=== PATIENT | female | born 1945 | race Caucasian/White ===

== ENCOUNTER 2016-10-28 19:13 | Emergency (ER) | payer OTHER ==
[~2016-10-28] VITALS: Ht 165.1 cm; Wt 109.1 kg
[~2016-10-28 19:13] MED LIST: ALPR1TAB7 PO; ATOR10TA84 PO; CALC-51 PO; CALC25 PO; CARV3 PO; DIPH25 PO; FURO20 PO; INSLAN SQ; INSNOV SQ; LEVO50TA4 PO; LORA-703 PO; MECL-111 PO; OMEP20 PO; SERT100T12 PO; VITAD1000 PO; ZOLP10 PO
[2016-10-28 19:41] LABS: GLUCOSE,POINT OF CARE 161 MG/DL (70-110)
[2016-10-28 21:16] VITALS: BP 119/73
== END 2016-10-28 22:04 | disposition home or self-care (01) ==
LOC: EMS 19:15
DX: S61.210A Laceration without foreign body of right index finger without damage to nail, initial encounter (principal); S90.01XA Contusion of right ankle, initial encounter; E11.29 Type 2 diabetes mellitus with other diabetic kidney complication; N28.9 Disorder of kidney and ureter, unspecified; I10 Essential (primary) hypertension; Z79.4 Long term (current) use of insulin; Z88.0 Allergy status to penicillin; Z88.8 Allergy status to other drugs, medicaments and biological substances; W45.8XXA Other foreign body or object entering through skin, initial encounter; Y93.89 Activity, other specified; Y92.89 Other specified places as the place of occurrence of the external cause; Y99.8 Other external cause status
CPT/HCPCS: 12001; 82962; 99284

== ENCOUNTER 2016-12-02 13:29 | Inpatient (IN) | payer OTHER ==
[~2016-12-02] VITALS: Ht 162.6 cm; Wt 100.6 kg
[~2016-12-02 13:29] MED LIST changes: -DIPH25 PO; -LORA-703 PO; -MECL-111 PO; -OMEP20 PO; -ZOLP10 PO
[2016-12-02 14:12] LABS: GLUCOSE,POINT OF CARE 159 MG/DL (70-110)
[2016-12-02] MEDS ORDERED: ASPIRIN 81 MG CHEWABLE TABLET PO ONE (14:45)
[2016-12-02 15:03] LABS: BASOPHILS # (AUTO) 0.02 K/uL (0.00-0.20); BASOPHILS % (AUTO) 0.2 % (0.0-2.0); EOSINOPHILS # (AUTO) 0.17 K/uL (0.00-0.70); HEMATOCRIT 36.8 % (36-46); HEMOGLOBIN 12.1 g/dL (12.0-16.0); LYMPHOCYTES # (AUTO) 0.9 K/uL (1.0-4.8); LYMPHOCYTES % (AUTO) 11.2 % (22.0-44.0); MEAN CORPUSCULAR HEMOGLOBIN 37.9 pg (26.0-34.0); MEAN CORPUSCULAR VOLUME 115 fL (80-100); MONOCYTES # (AUTO) 0.3 K/uL (0.1-1.0); MONOCYTES % (AUTO) 3.7 % (2.0-9.0); NEUTROPHILS # (AUTO) 6.9 K/uL (1.8-7.7); NEUTROPHILS % (AUTO) 82.9 % (40.0-70.0); PLATELET COUNT (AUTO) 208 K/uL (150-450); WHITE BLOOD COUNT (AUTO) 8.3 K/uL (4.5-11.0)
[2016-12-02 15:16] LABS: ANION GAP 6 mmol/L (8-16); CALCIUM, TOTAL 9.6 mg/dL (8.8-10.5); CARBON DIOXIDE 34 mmol/L (22-29); CHLORIDE 103 mmol/L (98-107); CREATININE 1.83 mg/dL (0.60-1.30); GLOMERULAR FILTR. RATE CALC 27 mL/min (>60); INR 1.1 (0.9-1.1); POTASSIUM 4.1 mmol/L (3.5-5.1); PROTHROMBIN TIME 11.2 SEC (9.4-11.6); SODIUM SERUM 143 mmol/L (136-145); UREA NITROGEN, BLOOD 43 mg/dL (7-18)
[2016-12-02 15:22] LABS: ALANINE AMINOTRANSFERASE 51 U/L (12-78); ALBUMIN 3.1 g/dL (3.4-5.0); ASPARTATE AMINOTRANSFERASE 47 U/L (15-37); BILIRUBIN,TOTAL 0.4 mg/dL (0.1-1.0); CREATINE KINASE, TOTAL 60 U/L (26-192); TOTAL PROTEIN, SERUM 6.9 g/dL (6.4-8.2)
[2016-12-02 15:31] LABS: B-TYPE NATRIURETIC PEPTIDE 255 pg/mL (0-100)
[2016-12-02 15:38] LABS: RBC MORPHOLOGY COMMENT ABNORMAL RBC MORPH
[2016-12-02] MEDS ORDERED: SODIUM CHLORIDE 0.9% 1,000 ML IV ONE (16:00)
[2016-12-02] MEDS ORDERED: DIGOXIN 250 MCG/ML 2 ML AMP IVP ONE ×2 (16:15→17:00)
[2016-12-02 16:18] LABS: APPEARANCE,URINE CLEAR (CLEAR); GLUCOSE, URINE (UA) NEGATIVE (NEGATIVE); KETONES,URINE NEGATIVE (NEGATIVE); LEUKOCYTE ESTERASE ,URINE NEGATIVE (NEGATIVE); OCCULT BLOOD,URINE NEGATIVE (NEGATIVE); PH,URINE 5.5 (5.0-8.0); PROTEIN,URINE NEGATIVE (NEGATIVE)
[2016-12-02 16:19] LABS: ADD UA MICROSCOPIC NO
[2016-12-02] MEDS ORDERED: HEPARIN SODIUM 25000 UNITS/D5W 250 ML IV PRN (16:32)
[2016-12-02] MEDS ORDERED: HEPARIN SODIUM,PORCINE 5,000 UNITS/ML VIAL IVP ONE ×2 (16:45)
[2016-12-02] MEDS ORDERED: AMIODARONE HCL 360 MG in DEXTROSE 5%-WATER 242.8 ML IV ONE (16:45)
[2016-12-02] MEDS ORDERED: 0.9% SODIUM CHLORIDE 10 ML SYRINGE IVP PRN (16:45)
[2016-12-02] MEDS ORDERED: ONDANSETRON HCL 4 MG/2 ML VIAL IVP PRN (16:45)
[2016-12-02] MEDS ORDERED: HEPARIN SODIUM,PORCINE 5,000 UNITS/ML VIAL IVP PRN ×2 (16:45)
[2016-12-02] MEDS ORDERED: AMIODARONE HCL 150 MG in DEXTROSE 5%-WATER 97 ML IV ONE (16:45)
[2016-12-02] MEDS ORDERED: ACETAMINOPHEN 325 MG TABLET PO PRN (18:15)
[2016-12-02] MEDS ORDERED: DEXTROSE 50%-WATER 25 GM/50 ML SYRINGE IVP PRN (18:15)
[2016-12-02] MEDS ORDERED: ZOLPIDEM TARTRATE 5 MG TABLET PO PRN (18:15)
[2016-12-02 19:53] VITALS: BP 120/65
[2016-12-02] MEDS: FUROSEMIDE 20 MG TABLET PO SCH (20:48)
[2016-12-02] MEDS: CARVEDILOL 3.125 MG TABLET PO SCH (20:48)
[2016-12-02] MEDS: OxyCODONE HCL/ACETAMINOPHEN 5-325 MG TABLET PO PRN (20:48)
[2016-12-02] MEDS: SERTRALINE HCL 100 MG TABLET PO SCH (20:48)
[2016-12-02] MEDS ORDERED: AMIODARONE HCL 540 MG in DEXTROSE 5%-WATER 239.2 ML IV ONE (22:45)
[2016-12-02] MEDS: INSULIN ASPART 100 UNITS/ML SQ PRN (23:19)
[2016-12-03] VITALS (7 sets, daily range): BP systolic 102–131; BP diastolic 47–69
[2016-12-03] MEDS: HEPARIN SODIUM,PORCINE 5,000 UNITS/ML VIAL SQ SCH ×2 (01:08→08:54)
[2016-12-03] MEDS: LEVOTHYROXINE SODIUM 50 MCG TABLET PO SCH (06:18)
[2016-12-03 08:06] LABS: BASOPHILS % (AUTO) 0.5 % (0.0-2.0); EOSINOPHILS % (AUTO) 4.2 % (1.0-6.0); HEMATOCRIT 33.2 % (36-46); HEMOGLOBIN 10.5 g/dL (12.0-16.0); LYMPHOCYTES # (AUTO) 1.9 K/uL (1.0-4.8); LYMPHOCYTES % (AUTO) 29.8 % (22.0-44.0); MEAN CORPUSCULAR HEMOGLOBIN 36.6 pg (26.0-34.0); MEAN CORPUSCULAR HGB CONC 31.5 G/dL (31.0-37.0); MEAN CORPUSCULAR VOLUME 116 fL (80-100); MONOCYTES # (AUTO) 0.3 K/uL (0.1-1.0); MONOCYTES % (AUTO) 4.4 % (2.0-9.0); NEUTROPHILS # (AUTO) 3.9 K/uL (1.8-7.7); NEUTROPHILS % (AUTO) 61.1 % (40.0-70.0); PLATELET COUNT (AUTO) 190 K/uL (150-450); RED BLOOD CELL COUNT(AUTO) 2.86 MIL/uL (4.00-5.20); RED CELL DISTRIBUTION WIDTH 15.2 % (11.5-14.5); WHITE BLOOD COUNT (AUTO) 6.3 K/uL (4.5-11.0)
[2016-12-03] MEDS: ATORVASTATIN CALCIUM 10 MG TABLET PO SCH (08:54)
[2016-12-03] MEDS: PANTOPRAZOLE SODIUM 40 MG DR TABLET PO SCH (08:55)
[2016-12-03] MEDS: CHOLECALCIFEROL (VIT D3) 1,000 UNITS TABLET PO SCH (08:55)
[2016-12-03] MEDS: CARVEDILOL 3.125 MG TABLET PO SCH ×2 (08:55→21:49)
[2016-12-03] MEDS: CALCITRIOL 0.25 MCG CAPSULE PO SCH (08:55)
[2016-12-03] MEDS: FUROSEMIDE 20 MG TABLET PO SCH ×2 (08:57→21:49)
[2016-12-03] MEDS: APIXABAN 5 MG TABLET PO SCH ×2 (17:04→21:49)
[2016-12-03] MEDS: AMIODARONE HCL 750 MG in DEXTROSE 5%-WATER 485 ML IV SCH (17:05)
[2016-12-03] MEDS: INSULIN ASPART 100 UNITS/ML SQ PRN ×2 (18:21→21:48)
[2016-12-03] MEDS: SERTRALINE HCL 100 MG TABLET PO SCH (21:48)
[2016-12-03] MEDS: OxyCODONE HCL/ACETAMINOPHEN 5-325 MG TABLET PO PRN (22:36)
[2016-12-04 04:23] VITALS: BP 125/70
[2016-12-04] MEDS: OxyCODONE HCL/ACETAMINOPHEN 5-325 MG TABLET PO PRN ×2 (05:28→21:49)
[2016-12-04] MEDS: LEVOTHYROXINE SODIUM 50 MCG TABLET PO SCH (06:29)
[2016-12-04] MEDS: INSULIN ASPART 100 UNITS/ML SQ PRN ×4 (06:36→21:43)
[2016-12-04 07:28] VITALS: BP 100/46
[2016-12-04 07:33] LABS: GLUCOSE COMMENT 1 Received Meds; GLUCOSE,POINT OF CARE 221 MG/DL (70-110)
[2016-12-04] MEDS: PANTOPRAZOLE SODIUM 40 MG DR TABLET PO SCH (09:11)
[2016-12-04] MEDS: ATORVASTATIN CALCIUM 10 MG TABLET PO SCH (09:11)
[2016-12-04] MEDS: APIXABAN 5 MG TABLET PO SCH ×2 (09:11→21:42)
[2016-12-04] MEDS: FUROSEMIDE 20 MG TABLET PO SCH ×2 (09:11→21:42)
[2016-12-04] MEDS: CHOLECALCIFEROL (VIT D3) 1,000 UNITS TABLET PO SCH (09:11)
[2016-12-04] MEDS: CARVEDILOL 3.125 MG TABLET PO SCH ×2 (09:12→21:43)
[2016-12-04] MEDS: CALCITRIOL 0.25 MCG CAPSULE PO SCH (09:22)
[2016-12-04 11:06] VITALS: BP 125/71
[2016-12-04 15:10] LABS: CALCIUM, TOTAL 9.5 mg/dL (8.8-10.5); CREATININE 1.84 mg/dL (0.60-1.30); POTASSIUM 4.5 mmol/L (3.5-5.1)
[2016-12-04 15:18] LABS: ALBUMIN 2.8 g/dL (3.4-5.0); BILIRUBIN,TOTAL 0.3 mg/dL (0.1-1.0); TOTAL PROTEIN, SERUM 6.5 g/dL (6.4-8.2)
[2016-12-04 15:53] VITALS: BP 108/61
[2016-12-04] MEDS: AMIODARONE HCL 750 MG in DEXTROSE 5%-WATER 485 ML IV SCH (17:31)
[2016-12-04 19:44] VITALS: BP 125/74
[2016-12-04] MEDS: SERTRALINE HCL 100 MG TABLET PO SCH (21:43)
[2016-12-05 00:05] VITALS: BP 116/67
[2016-12-05 04:32] VITALS: BP 111/80
[2016-12-05] MEDS: OxyCODONE HCL/ACETAMINOPHEN 5-325 MG TABLET PO PRN ×2 (05:23→20:58)
[2016-12-05] MEDS: LEVOTHYROXINE SODIUM 50 MCG TABLET PO SCH (06:24)
[2016-12-05] MEDS: INSULIN ASPART 100 UNITS/ML SQ PRN ×4 (06:24→21:27)
[2016-12-05] MEDS ORDERED: 0.9% SODIUM CHLORIDE 10 ML SYRINGE IVP PRN (07:00)
[2016-12-05 07:31] LABS: BASOPHILS # (AUTO) 0.03 K/uL (0.00-0.20); BASOPHILS % (AUTO) 0.4 % (0.0-2.0); EOSINOPHILS # (AUTO) 0.26 K/uL (0.00-0.70); EOSINOPHILS % (AUTO) 3.92 % (1.0-6.0); HEMATOCRIT 31.1 % (36-46); HEMOGLOBIN 10.5 g/dL (12.0-16.0); LYMPHOCYTES # (AUTO) 1.2 K/uL (1.0-4.8); MEAN CORPUSCULAR HEMOGLOBIN 38.4 pg (26.0-34.0); MEAN CORPUSCULAR HGB CONC 33.7 G/dL (31.0-37.0); MEAN CORPUSCULAR VOLUME 114 fL (80-100); MONOCYTES # (AUTO) 0.3 K/uL (0.1-1.0); MONOCYTES % (AUTO) 4.9 % (2.0-9.0); NEUTROPHILS # (AUTO) 4.9 K/uL (1.8-7.7); NEUTROPHILS % (AUTO) 72.8 % (40.0-70.0); PLATELET COUNT (AUTO) 167 K/uL (150-450); RED BLOOD CELL COUNT(AUTO) 2.73 MIL/uL (4.00-5.20); RED CELL DISTRIBUTION WIDTH 14.7 % (11.5-14.5); WHITE BLOOD COUNT (AUTO) 6.8 K/uL (4.5-11.0)
[2016-12-05 07:38] VITALS: BP 95/50
[2016-12-05 07:46] LABS: RBC MORPHOLOGY COMMENT ABNORMAL RBC MORPH
[2016-12-05 08:02] LABS: ALBUMIN 2.8 g/dL (3.4-5.0); BILIRUBIN,TOTAL 0.4 mg/dL (0.1-1.0); CALCIUM, TOTAL 9.6 mg/dL (8.8-10.5); CREATININE 2.07 mg/dL (0.60-1.30); POTASSIUM 4.3 mmol/L (3.5-5.1); TOTAL PROTEIN, SERUM 6.3 g/dL (6.4-8.2)
[2016-12-05] MEDS: ATORVASTATIN CALCIUM 10 MG TABLET PO SCH (08:57)
[2016-12-05] MEDS: FUROSEMIDE 20 MG TABLET PO SCH ×2 (08:57→20:58)
[2016-12-05] MEDS: CARVEDILOL 3.125 MG TABLET PO SCH ×2 (08:57→20:58)
[2016-12-05] MEDS: PANTOPRAZOLE SODIUM 40 MG DR TABLET PO SCH (08:57)
[2016-12-05] MEDS: APIXABAN 5 MG TABLET PO SCH ×2 (08:57→20:58)
[2016-12-05] MEDS: CALCITRIOL 0.25 MCG CAPSULE PO SCH (08:57)
[2016-12-05] MEDS: CHOLECALCIFEROL (VIT D3) 1,000 UNITS TABLET PO SCH (08:57)
[2016-12-05 11:17] VITALS: BP 118/74
[2016-12-05 16:04] VITALS: BP 123/61
[2016-12-05] MEDS ORDERED: DIGOXIN 250 MCG/ML 2 ML AMP IVP ONE (17:30)
[2016-12-05] MEDS ORDERED: INFLUENZA VIRUS VACCINE QVS 2016-17 (3YR+)/PF 60 MCG/0.5 ML SYRINGE IM ONE (17:30)
[2016-12-05 20:09] VITALS: BP 117/75
[2016-12-05] MEDS: SERTRALINE HCL 100 MG TABLET PO SCH (20:58)
[2016-12-05] MEDS: AMIODARONE HCL 200 MG TABLET PO SCH (20:58)
[2016-12-05] MEDS ORDERED: AMIODARONE HCL 200 MG TABLET PO SCH (21:00)
[2016-12-06] VITALS (7 sets, daily range): BP systolic 104–123; BP diastolic 57–77
[2016-12-06 05:47] LABS: GLUCOSE COMMENT 1 Received Meds; GLUCOSE,POINT OF CARE 210 MG/DL (70-110)
[2016-12-06 05:48] LABS: GLUCOSE COMMENT 1 Received Meds; GLUCOSE,POINT OF CARE 219 MG/DL (70-110)
[2016-12-06] MEDS: LEVOTHYROXINE SODIUM 50 MCG TABLET PO SCH (06:01)
[2016-12-06] MEDS: INSULIN ASPART 100 UNITS/ML SQ PRN ×4 (06:03→21:14)
[2016-12-06 06:38] LABS: BASOPHILS # (AUTO) 0.03 K/uL (0.00-0.20); BASOPHILS % (AUTO) 0.5 % (0.0-2.0); EOSINOPHILS # (AUTO) 0.27 K/uL (0.00-0.70); EOSINOPHILS % (AUTO) 4.46 % (1.0-6.0); HEMATOCRIT 30.7 % (36-46); HEMOGLOBIN 10.2 g/dL (12.0-16.0); LYMPHOCYTES # (AUTO) 1.7 K/uL (1.0-4.8); LYMPHOCYTES % (AUTO) 27.6 % (22.0-44.0); MEAN CORPUSCULAR HEMOGLOBIN 37.7 pg (26.0-34.0); MEAN CORPUSCULAR HGB CONC 33.2 G/dL (31.0-37.0); MEAN CORPUSCULAR VOLUME 114 fL (80-100); MONOCYTES # (AUTO) 0.4 K/uL (0.1-1.0); MONOCYTES % (AUTO) 5.9 % (2.0-9.0); NEUTROPHILS # (AUTO) 3.8 K/uL (1.8-7.7); NEUTROPHILS % (AUTO) 61.4 % (40.0-70.0); PLATELET COUNT (AUTO) 163 K/uL (150-450); RED CELL DISTRIBUTION WIDTH 14.7 % (11.5-14.5); WHITE BLOOD COUNT (AUTO) 6.1 K/uL (4.5-11.0)
[2016-12-06 07:07] LABS: ALBUMIN 2.9 g/dL (3.4-5.0); BILIRUBIN,TOTAL 0.5 mg/dL (0.1-1.0); CREATININE 1.91 mg/dL (0.60-1.30); POTASSIUM 4.3 mmol/L (3.5-5.1); TOTAL PROTEIN, SERUM 6.5 g/dL (6.4-8.2)
[2016-12-06] MEDS: CALCITRIOL 0.25 MCG CAPSULE PO SCH (08:59)
[2016-12-06] MEDS: FUROSEMIDE 20 MG TABLET PO SCH ×2 (09:00→20:36)
[2016-12-06] MEDS: CHOLECALCIFEROL (VIT D3) 1,000 UNITS TABLET PO SCH (09:00)
[2016-12-06] MEDS: CARVEDILOL 3.125 MG TABLET PO SCH ×2 (09:00→20:36)
[2016-12-06] MEDS: APIXABAN 5 MG TABLET PO SCH ×2 (09:00→20:36)
[2016-12-06] MEDS: PANTOPRAZOLE SODIUM 40 MG DR TABLET PO SCH (09:00)
[2016-12-06] MEDS: ATORVASTATIN CALCIUM 10 MG TABLET PO SCH (09:00)
[2016-12-06] MEDS: AMIODARONE HCL 200 MG TABLET PO SCH ×3 (09:00→20:36)
[2016-12-06 13:36] LABS: RBC MORPHOLOGY COMMENT ABNORMAL RBC MORPH
[2016-12-06] MEDS: OxyCODONE HCL/ACETAMINOPHEN 5-325 MG TABLET PO PRN (13:51)
[2016-12-06 15:31] LABS: GLUCOSE COMMENT 1 Received Meds; GLUCOSE,POINT OF CARE 240 MG/DL (70-110)
[2016-12-06] MEDS: SERTRALINE HCL 100 MG TABLET PO SCH (20:37)
[2016-12-06 22:42] LABS: GLUCOSE COMMENT 1 Received Meds; GLUCOSE,POINT OF CARE 207 MG/DL (70-110)
[2016-12-07 05:55] VITALS: BP 116/57
[2016-12-07] MEDS: LEVOTHYROXINE SODIUM 50 MCG TABLET PO SCH (06:28)
[2016-12-07] MEDS: INSULIN ASPART 100 UNITS/ML SQ PRN ×4 (06:31→20:54)
[2016-12-07 06:53] LABS: BASOPHILS % (AUTO) 0.3 % (0.0-2.0); EOSINOPHILS % (AUTO) 2.9 % (1.0-6.0); HEMATOCRIT 30.4 % (36-46); HEMOGLOBIN 9.7 g/dL (12.0-16.0); LYMPHOCYTES # (AUTO) 1.1 K/uL (1.0-4.8); LYMPHOCYTES % (AUTO) 17.6 % (22.0-44.0); MEAN CORPUSCULAR HEMOGLOBIN 36.6 pg (26.0-34.0); MEAN CORPUSCULAR VOLUME 115 fL (80-100); MONOCYTES # (AUTO) 0.3 K/uL (0.1-1.0); MONOCYTES % (AUTO) 5.4 % (2.0-9.0); NEUTROPHILS # (AUTO) 4.6 K/uL (1.8-7.7); NEUTROPHILS % (AUTO) 73.8 % (40.0-70.0); PLATELET COUNT (AUTO) 166 K/uL (150-450); RED BLOOD CELL COUNT(AUTO) 2.66 MIL/uL (4.00-5.20); RED CELL DISTRIBUTION WIDTH 14.3 % (11.5-14.5); WHITE BLOOD COUNT (AUTO) 6.3 K/uL (4.5-11.0)
[2016-12-07 07:19] LABS: RBC MORPHOLOGY COMMENT ABNORMAL RBC MORPH
[2016-12-07 07:25] LABS: BILIRUBIN,TOTAL 0.7 mg/dL (0.1-1.0); CALCIUM, TOTAL 9.9 mg/dL (8.8-10.5); CREATININE 1.82 mg/dL (0.60-1.30); POTASSIUM 4.2 mmol/L (3.5-5.1); TOTAL PROTEIN, SERUM 6.5 g/dL (6.4-8.2)
[2016-12-07 07:36] LABS: GLUCOSE COMMENT 1 Received Meds; GLUCOSE,POINT OF CARE 203 MG/DL (70-110)
[2016-12-07 07:57] VITALS: BP 109/60
[2016-12-07] MEDS: PANTOPRAZOLE SODIUM 40 MG DR TABLET PO SCH (08:58)
[2016-12-07] MEDS: APIXABAN 5 MG TABLET PO SCH ×2 (08:58→20:41)
[2016-12-07] MEDS: FUROSEMIDE 20 MG TABLET PO SCH (08:58)
[2016-12-07] MEDS: CALCITRIOL 0.25 MCG CAPSULE PO SCH (08:58)
[2016-12-07] MEDS: CHOLECALCIFEROL (VIT D3) 1,000 UNITS TABLET PO SCH (08:58)
[2016-12-07] MEDS: ATORVASTATIN CALCIUM 10 MG TABLET PO SCH (08:58)
[2016-12-07] MEDS: CARVEDILOL 3.125 MG TABLET PO SCH ×2 (08:58→20:41)
[2016-12-07] MEDS: AMIODARONE HCL 200 MG TABLET PO SCH ×3 (08:58→20:40)
[2016-12-07 11:48] VITALS: BP 117/52
[2016-12-07 16:07] VITALS: BP 116/51
[2016-12-07] MEDS ORDERED: BISACODYL 10 MG RECTAL RECTAL SUPPOSITORY PR PRN (18:45)
[2016-12-07] MEDS ORDERED: MAGNESIUM HYDROXIDE SUSPENSION 30 ML UDCUP PO PRN (18:45)
[2016-12-07] MEDS ORDERED: ONDANSETRON HCL 4 MG/2 ML VIAL IVP PRN (18:45)
[2016-12-07] MEDS ORDERED: ALBUTEROL SULFATE 2.5 MG/0.5 ML NEB SOLUTION NEB PRN (18:45)
[2016-12-07] MEDS ORDERED: MORPHINE SULFATE 2 MG/ML SYRINGE IVP PRN (18:45)
[2016-12-07] MEDS ORDERED: ZOLPIDEM TARTRATE 5 MG TABLET PO PRN (18:45)
[2016-12-07] MEDS ORDERED: IPRATROPIUM BROMIDE 0.5 MG/2.5 ML NEB SOLUTION NEB PRN (18:45)
[2016-12-07 19:28] VITALS: BP 103/71
[2016-12-07] MEDS: SERTRALINE HCL 100 MG TABLET PO SCH (20:40)
[2016-12-07] MEDS: OxyCODONE HCL/ACETAMINOPHEN 5-325 MG TABLET PO PRN (20:52)
[2016-12-07 23:35] VITALS: BP 96/60
[2016-12-08] VITALS (8 sets, daily range): BP systolic 92–135; BP diastolic 42–73
[2016-12-08] MEDS ORDERED: FentaNYL CITRATE-PF 100 MCG/2 ML VIAL IVP ONE (00:59)
[2016-12-08] MEDS ORDERED: MIDAZOLAM HCL 2 MG/2 ML VIAL IVP ONE (00:59)
[2016-12-08] MEDS: LEVOTHYROXINE SODIUM 50 MCG TABLET PO SCH (06:15)
[2016-12-08 07:15] LABS: BASOPHILS % (AUTO) 0.4 % (0.0-2.0); EOSINOPHILS % (AUTO) 4.8 % (1.0-6.0); HEMATOCRIT 28.6 % (36-46); HEMOGLOBIN 9.1 g/dL (12.0-16.0); LYMPHOCYTES # (AUTO) 1.5 K/uL (1.0-4.8); LYMPHOCYTES % (AUTO) 28.9 % (22.0-44.0); MEAN CORPUSCULAR HEMOGLOBIN 36.9 pg (26.0-34.0); MEAN CORPUSCULAR HGB CONC 31.9 G/dL (31.0-37.0); MEAN CORPUSCULAR VOLUME 116 fL (80-100); MONOCYTES # (AUTO) 0.3 K/uL (0.1-1.0); MONOCYTES % (AUTO) 5.9 % (2.0-9.0); NEUTROPHILS # (AUTO) 3.2 K/uL (1.8-7.7); PLATELET COUNT (AUTO) 144 K/uL (150-450); RED BLOOD CELL COUNT(AUTO) 2.47 MIL/uL (4.00-5.20); RED CELL DISTRIBUTION WIDTH 14.7 % (11.5-14.5); WHITE BLOOD COUNT (AUTO) 5.3 K/uL (4.5-11.0)
[2016-12-08 07:21] LABS: GLUCOSE,POINT OF CARE 182 MG/DL (70-110)
[2016-12-08 07:21] LABS: GLUCOSE COMMENT 1 Received Meds; GLUCOSE,POINT OF CARE 238 MG/DL (70-110)
[2016-12-08 07:27] LABS: GLUCOSE COMMENT 1 Received Meds; GLUCOSE,POINT OF CARE 219 MG/DL (70-110)
[2016-12-08 07:44] LABS: ALBUMIN 2.7 g/dL (3.4-5.0); BILIRUBIN,TOTAL 0.5 mg/dL (0.1-1.0); CALCIUM, TOTAL 9.5 mg/dL (8.8-10.5); CREATININE 1.88 mg/dL (0.60-1.30); POTASSIUM 3.7 mmol/L (3.5-5.1); TOTAL PROTEIN, SERUM 6.1 g/dL (6.4-8.2)
[2016-12-08] MEDS: CARVEDILOL 3.125 MG TABLET PO SCH ×2 (09:00→20:15)
[2016-12-08] MEDS: CHOLECALCIFEROL (VIT D3) 1,000 UNITS TABLET PO SCH (09:00)
[2016-12-08] MEDS: CALCITRIOL 0.25 MCG CAPSULE PO SCH (09:00)
[2016-12-08] MEDS: ATORVASTATIN CALCIUM 10 MG TABLET PO SCH (09:00)
[2016-12-08] MEDS: AMIODARONE HCL 200 MG TABLET PO SCH ×3 (09:00→20:15)
[2016-12-08] MEDS: APIXABAN 5 MG TABLET PO SCH ×2 (09:00→20:15)
[2016-12-08] MEDS: FUROSEMIDE 20 MG TABLET PO SCH (09:00)
[2016-12-08] MEDS: PANTOPRAZOLE SODIUM 40 MG DR TABLET PO SCH (09:00)
[2016-12-08 10:31] LABS: RBC MORPHOLOGY COMMENT ABNORMAL RBC MORPH
[2016-12-08 11:49] LABS: GLUCOSE,POINT OF CARE 213 MG/DL (70-110)
[2016-12-08 11:49] LABS: GLUCOSE,POINT OF CARE 106 MG/DL (70-110)
[2016-12-08 11:52] LABS: GLUCOSE COMMENT 1 Received Meds; GLUCOSE,POINT OF CARE 153 MG/DL (70-110)
[2016-12-08 11:52] LABS: GLUCOSE,POINT OF CARE 204 MG/DL (70-110)
[2016-12-08 11:52] LABS: GLUCOSE COMMENT 1 Received Meds; GLUCOSE,POINT OF CARE 234 MG/DL (70-110)
[2016-12-08 11:53] LABS: GLUCOSE COMMENT 1 Received Meds; GLUCOSE,POINT OF CARE 180 MG/DL (70-110)
[2016-12-08 11:53] LABS: GLUCOSE COMMENT 1 Received Meds; GLUCOSE,POINT OF CARE 221 MG/DL (70-110)
[2016-12-08 11:53] LABS: GLUCOSE COMMENT 1 Received Meds; GLUCOSE,POINT OF CARE 202 MG/DL (70-110)
[2016-12-08 11:57] LABS: GLUCOSE COMMENT 1 Received Meds; GLUCOSE,POINT OF CARE 206 MG/DL (70-110)
[2016-12-08 11:58] LABS: GLUCOSE COMMENT 1 Received Meds; GLUCOSE,POINT OF CARE 205 MG/DL (70-110)
[2016-12-08 11:59] LABS: GLUCOSE,POINT OF CARE 196 MG/DL (70-110)
[2016-12-08 11:59] LABS: GLUCOSE COMMENT 1 Received Meds; GLUCOSE,POINT OF CARE 249 MG/DL (70-110)
[2016-12-08] MEDS ORDERED: BENZOCAINE 20% 50 MCG/SPRAY 57 GM ONE (12:34)
[2016-12-08] MEDS ORDERED: BENZOCAINE 20% 30 ML SOLUTION TP ONE (13:00)
[2016-12-08 17:22] LABS: GLUCOSE,POINT OF CARE 198 MG/DL (70-110)
[2016-12-08] MEDS: INSULIN ASPART 100 UNITS/ML SQ PRN ×2 (18:15→20:29)
[2016-12-08] MEDS: SERTRALINE HCL 100 MG TABLET PO SCH (20:15)
[2016-12-08] MEDS: OxyCODONE HCL/ACETAMINOPHEN 5-325 MG TABLET PO PRN (22:15)
[2016-12-09 04:20] VITALS: BP 122/65
[2016-12-09] MEDS: LEVOTHYROXINE SODIUM 50 MCG TABLET PO SCH (05:06)
[2016-12-09] MEDS: OxyCODONE HCL/ACETAMINOPHEN 5-325 MG TABLET PO PRN (05:06)
[2016-12-09] MEDS: INSULIN ASPART 100 UNITS/ML SQ PRN ×3 (05:50→17:32)
[2016-12-09 05:58] LABS: BASOPHILS % (AUTO) 0.3 % (0.0-2.0); EOSINOPHILS % (AUTO) 5.8 % (1.0-6.0); HEMATOCRIT 29.6 % (36-46); HEMOGLOBIN 9.5 g/dL (12.0-16.0); LYMPHOCYTES # (AUTO) 1.3 K/uL (1.0-4.8); LYMPHOCYTES % (AUTO) 16.8 % (22.0-44.0); MEAN CORPUSCULAR HEMOGLOBIN 36.9 pg (26.0-34.0); MEAN CORPUSCULAR HGB CONC 32.2 G/dL (31.0-37.0); MEAN CORPUSCULAR VOLUME 115 fL (80-100); MONOCYTES # (AUTO) 0.4 K/uL (0.1-1.0); MONOCYTES % (AUTO) 4.6 % (2.0-9.0); NEUTROPHILS # (AUTO) 5.7 K/uL (1.8-7.7); NEUTROPHILS % (AUTO) 72.5 % (40.0-70.0); PLATELET COUNT (AUTO) 172 K/uL (150-450); RED BLOOD CELL COUNT(AUTO) 2.58 MIL/uL (4.00-5.20); RED CELL DISTRIBUTION WIDTH 14.6 % (11.5-14.5); WHITE BLOOD COUNT (AUTO) 7.8 K/uL (4.5-11.0)
[2016-12-09 06:14] LABS: BILIRUBIN,TOTAL 0.5 mg/dL (0.1-1.0); CALCIUM, TOTAL 9.3 mg/dL (8.8-10.5); CREATININE 1.88 mg/dL (0.60-1.30); TOTAL PROTEIN, SERUM 6.5 g/dL (6.4-8.2)
[2016-12-09 07:07] LABS: RBC MORPHOLOGY COMMENT ABNORMAL RBC MORPH
[2016-12-09 07:18] LABS: POTASSIUM 4.2 mmol/L (3.5-5.1)
[2016-12-09 07:41] VITALS: BP 107/51
[2016-12-09] MEDS: ATORVASTATIN CALCIUM 10 MG TABLET PO SCH (08:20)
[2016-12-09] MEDS: CALCITRIOL 0.25 MCG CAPSULE PO SCH (08:20)
[2016-12-09] MEDS: CHOLECALCIFEROL (VIT D3) 1,000 UNITS TABLET PO SCH (08:21)
[2016-12-09] MEDS: PANTOPRAZOLE SODIUM 40 MG DR TABLET PO SCH (08:21)
[2016-12-09] MEDS: AMIODARONE HCL 200 MG TABLET PO SCH ×2 (08:21→16:31)
[2016-12-09] MEDS: APIXABAN 5 MG TABLET PO SCH (08:21)
[2016-12-09] MEDS: FUROSEMIDE 20 MG TABLET PO SCH (08:21)
[2016-12-09 11:30] VITALS: BP 113/62
[2016-12-09 11:48] LABS: GLUCOSE COMMENT 1 Received Meds; GLUCOSE,POINT OF CARE 253 MG/DL (70-110)
[2016-12-09] MEDS: CARVEDILOL 3.125 MG TABLET PO SCH (11:50)
[2016-12-09 13:06] LABS: APPEARANCE,URINE CLOUDY (CLEAR); GLUCOSE, URINE (UA) NEGATIVE (NEGATIVE); KETONES,URINE NEGATIVE (NEGATIVE); OCCULT BLOOD,URINE SMALL (NEGATIVE); PH,URINE >=9.0 (5.0-8.0); PROTEIN,URINE SEE CONFIRM (NEGATIVE)
[2016-12-09 13:07] LABS: ADD UA MICROSCOPIC YES; LEUKOCYTE ESTERASE ,URINE MODERATE (NEGATIVE); SULFOSALICYLIC ACID,URINE 2+ (Negative)
[2016-12-09 13:11] LABS: TRIPLE PHOSPHATE CRYSTAL,UR Many /LPF (None Seen)
[2016-12-09 13:13] LABS: SQUAMOUS EPITHELIAL CELL,UR Rare /LPF (None Seen)
[2016-12-09 15:18] VITALS: BP 131/50
[2016-12-09] MEDS ORDERED: SULFAMETHOX/TRIMETH DS 800-160 MG/TABLET PO ONE (16:00)
[2016-12-09] MEDS ORDERED: BACTDSB PO (16:42)
[2016-12-09] MEDS ORDERED: PROPOFOL 1% 20 ML VIAL IVP ONE (17:49)
[2016-12-09] MEDS ORDERED: LIDOCAINE HCL/PF 2% 5 ML VIAL IM ONE (17:49)
[2016-12-09 18:57] LABS: GLUCOSE,POINT OF CARE 200 MG/DL (70-110)
[2016-12-13 15:23] LABS: GLUCOSE COMMENT 1 Received Meds; GLUCOSE,POINT OF CARE 209 MG/DL (70-110)
[2016-12-13 15:23] LABS: GLUCOSE COMMENT 1 Received Meds; GLUCOSE,POINT OF CARE 204 MG/DL (70-110)
[2016-12-13 15:26] LABS: GLUCOSE COMMENT 1 Received Meds; GLUCOSE,POINT OF CARE 196 MG/DL (70-110)
[2016-12-13 15:26] LABS: GLUCOSE COMMENT 1 Received Meds; GLUCOSE,POINT OF CARE 181 MG/DL (70-110)
== END 2016-12-09 17:50 | disposition home or self-care (01) | DRG 309 ==
LOC: EMS 13:34 → 5N 17:25
PROVIDERS: ADMIT Hospitalist; ATTEND Hospitalist
PROC: 3E0234Z Introduction of Serum, Toxoid and Vaccine into Muscle, Percutaneous Approach (ICD-10-PCS; principal; 2016-12-06)
PROC: B24BZZ4 Ultrasonography of Heart with Aorta, Transesophageal (ICD-10-PCS; 2016-12-08)
PROC: 5A2204Z Restoration of Cardiac Rhythm, Single (ICD-10-PCS; 2016-12-08)
DX: I48.91 Unspecified atrial fibrillation (principal); E44.1 Mild protein-calorie malnutrition; I13.0 Hypertensive heart and chronic kidney disease with heart failure and stage 1 through stage 4 chronic kidney disease, or unspecified chronic kidney disease; E11.22 Type 2 diabetes mellitus with diabetic chronic kidney disease; E78.5 Hyperlipidemia, unspecified; N18.3 Chronic kidney disease, stage 3 (moderate); M19.90 Unspecified osteoarthritis, unspecified site; G80.9 Cerebral palsy, unspecified; M81.0 Age-related osteoporosis without current pathological fracture; I34.0 Nonrheumatic mitral (valve) insufficiency; E03.9 Hypothyroidism, unspecified; E66.9 Obesity, unspecified; I50.9 Heart failure, unspecified; F32.9 Major depressive disorder, single episode, unspecified; Z88.8 Allergy status to other drugs, medicaments and biological substances; Z91.018 Allergy to other foods; Z88.0 Allergy status to penicillin; Z23 Encounter for immunization; Z79.4 Long term (current) use of insulin; Z79.899 Other long term (current) drug therapy; Z68.38 Body mass index [BMI] 38.0-38.9, adult; Z83.3 Family history of diabetes mellitus; Z82.49 Family history of ischemic heart disease and other diseases of the circulatory system
CPT/HCPCS: 51702; 82962; 83036; 87086; 90471; 92960; 93005; 93306; 93312; 99291; J0282; J1160; J1644; J2250; J2270; J2704; J3010; J3490; J7060

== ENCOUNTER 2017-04-24 10:45 | Emergency (ER) | payer OTHER ==
[~2017-04-24] VITALS: Ht 157.5 cm; Wt 104.5 kg
[~2017-04-24 10:45] MED LIST changes: +BACTDSB PO
[2017-04-24 11:12] LABS: GLUCOSE,POINT OF CARE 138 MG/DL (70-110)
[2017-04-24 12:22] VITALS: BP 122/58
== END 2017-04-24 12:43 | disposition home or self-care (01) ==
LOC: EMS 10:49
DX: L89.892 Pressure ulcer of other site, stage 2 (principal); E11.9 Type 2 diabetes mellitus without complications; G80.9 Cerebral palsy, unspecified; I10 Essential (primary) hypertension; M81.0 Age-related osteoporosis without current pathological fracture; Z79.4 Long term (current) use of insulin; Z88.0 Allergy status to penicillin; Z74.01 Bed confinement status; Z88.8 Allergy status to other drugs, medicaments and biological substances; Z91.018 Allergy to other foods; Z91.048 Other nonmedicinal substance allergy status; Z80.49 Family history of malignant neoplasm of other genital organs
CPT/HCPCS: 82962; 99283

== ENCOUNTER 2017-05-08 20:47 | Emergency (ER) | payer OTHER ==
[~2017-05-08] VITALS: Ht 157.5 cm; Wt 109.1 kg
[2017-05-08 20:57] LABS: GLUCOSE,POINT OF CARE 117 MG/DL (70-110)
[2017-05-08 21:27] LABS: BASOPHILS % (AUTO) 0.2 % (0.0-2.0); EOSINOPHILS % (AUTO) 1.5 % (1.0-6.0); HEMATOCRIT 33.3 % (36-46); HEMOGLOBIN 11.1 g/dL (12.0-16.0); LYMPHOCYTES # (AUTO) 0.7 K/uL (1.0-4.8); LYMPHOCYTES % (AUTO) 9.3 % (22.0-44.0); MEAN CORPUSCULAR HGB CONC 33.4 G/dL (31.0-37.0); MEAN CORPUSCULAR VOLUME 108 fL (80-100); MONOCYTES # (AUTO) 0.3 K/uL (0.1-1.0); MONOCYTES % (AUTO) 3.2 % (2.0-9.0); NEUTROPHILS # (AUTO) 6.9 K/uL (1.8-7.7); PLATELET COUNT (AUTO) 200 K/uL (150-450); RED BLOOD CELL COUNT(AUTO) 3.08 MIL/uL (4.00-5.20); RED CELL DISTRIBUTION WIDTH 15.3 % (11.5-14.5); WHITE BLOOD COUNT (AUTO) 8.1 K/uL (4.5-11.0)
[2017-05-08 21:36] LABS: CALCIUM, TOTAL 10.2 mg/dL (8.8-10.5); CREATININE 2.32 mg/dL (0.60-1.30); POTASSIUM 3.6 mmol/L (3.5-5.1)
[2017-05-08 21:41] LABS: ALBUMIN 3.5 g/dL (3.4-5.0); BILIRUBIN,TOTAL 0.4 mg/dL (0.1-1.0); TOTAL PROTEIN, SERUM 6.9 g/dL (6.4-8.2)
[2017-05-08 21:50] LABS: NEUTROPHILS % (AUTO) 85.8 % (40.0-70.0); RBC MORPHOLOGY COMMENT ABNORMAL RBC MORPH
[2017-05-08 22:17] LABS: GLUCOSE,POINT OF CARE 120 MG/DL (70-110)
[2017-05-08] MEDS ORDERED: ONDANSETRON HCL 4 MG/2 ML VIAL IVP ONE (23:00)
[2017-05-08 23:48] LABS: GLUCOSE COMMENT 1 Juice/Food/D50 Given; GLUCOSE COMMENT 2 Doctor Notified; GLUCOSE,POINT OF CARE 79 MG/DL (70-110)
[2017-05-09 02:08] LABS: GLUCOSE,POINT OF CARE 144 MG/DL (70-110)
[2017-05-09 02:16] VITALS: BP 142/64
== END 2017-05-09 02:39 | disposition home or self-care (01) ==
LOC: EMS 20:49
DX: R41.82 Altered mental status, unspecified (principal); E11.649 Type 2 diabetes mellitus with hypoglycemia without coma; Z79.4 Long term (current) use of insulin; G80.9 Cerebral palsy, unspecified; I10 Essential (primary) hypertension; I12.9 Hypertensive chronic kidney disease with stage 1 through stage 4 chronic kidney disease, or unspecified chronic kidney disease; N18.9 Chronic kidney disease, unspecified; M81.0 Age-related osteoporosis without current pathological fracture; Z88.0 Allergy status to penicillin; Z99.3 Dependence on wheelchair; Z88.8 Allergy status to other drugs, medicaments and biological substances; Z91.018 Allergy to other foods; Z91.048 Other nonmedicinal substance allergy status; Z98.890 Other specified postprocedural states
CPT/HCPCS: 36415; 71010; 73562; 80053; 82962; 83690; 83880; 84484; 85025; 93005; 99285; J2405

== ENCOUNTER → 2017-06-26 | Outpatient (CLI) | payer MEDICARE, MEDICAID, OTHER ==
[~2017-06-26] MED LIST changes: +CALC-1038 PO; -CALC-51 PO
== END | disposition home or self-care (01) ==
LOC: RADPV 11:35
PROVIDERS: ATTEND Podiatrist Foot & Ankle Surgery
DX: M85.872 Other specified disorders of bone density and structure, left ankle and foot (principal); M21.42 Flat foot [pes planus] (acquired), left foot; I70.8 Atherosclerosis of other arteries

== ENCOUNTER 2019-02-12 10:03 | Emergency (ER) | payer OTHER ==
[~2019-02-12] VITALS: Ht 157.5 cm; Wt 72.7 kg
[~2019-02-12 10:03] MED LIST changes: +ALEN70TA10 PO; +AMIO200T44 PO; +APIX5TAB PO; -BACTDSB PO; +BUME1TAB17 PO; -CALC-1038 PO; -CALC25 PO; -CARV3 PO; -INSNOV SQ; +INSU100I24 SQ; +LOSA25TA41 PO; +OMEP20 PO; -VITAD1000 PO
[2019-02-12 10:29] LABS: GLUCOSE,POINT OF CARE 73 MG/DL (70-110)
[2019-02-12 10:54] LABS: BASOPHILS % (AUTO) 0.6 % (0.0-2.0); EOSINOPHILS % (AUTO) 0.2 % (1.0-6.0); HEMATOCRIT 24.8 % (36-46); HEMOGLOBIN 8.2 g/dL (12.0-16.0); LYMPHOCYTES # (AUTO) 0.5 K/uL (1.0-4.8); LYMPHOCYTES % (AUTO) 6.4 % (22.0-44.0); MEAN CORPUSCULAR HEMOGLOBIN 41.3 pg (26.0-34.0); MEAN CORPUSCULAR VOLUME 126 fL (80-100); MONOCYTES # (AUTO) 0.2 K/uL (0.1-1.0); MONOCYTES % (AUTO) 2.4 % (2.0-9.0); NEUTROPHILS # (AUTO) 7.3 K/uL (1.8-7.7); PLATELET COUNT (AUTO) 210 K/uL (150-450); RED BLOOD CELL COUNT(AUTO) 1.98 MIL/uL (4.00-5.20); RED CELL DISTRIBUTION WIDTH 19.3 % (11.5-14.5)
[2019-02-12 11:03] LABS: CALCIUM, TOTAL 9.7 mg/dL (8.8-10.5); CREATININE 1.53 mg/dL (0.60-1.30); POTASSIUM 5.5 mmol/L (3.5-5.1)
[2019-02-12 11:10] LABS: NEUTROPHILS % (AUTO) 90.4 % (40.0-70.0)
[2019-02-12 11:28] LABS: ALBUMIN 3.7 g/dL (3.4-5.0); BILIRUBIN,TOTAL 0.8 mg/dL (0.1-1.0); TOTAL PROTEIN, SERUM 6.9 g/dL (6.4-8.2)
[2019-02-12] MEDS ORDERED: SODIUM CHLORIDE 0.9% 500 ML IV ONE (11:30)
[2019-02-12] MEDS ORDERED: KETOROLAC TROMETHAMINE 30 MG/ML VIAL IVP ONE (11:30)
[2019-02-12] MEDS ORDERED: ONDANSETRON HCL 4 MG/2 ML VIAL IVP ONE (11:30)
[2019-02-12] MEDS ORDERED: DEXTROSE 5%-0.45% SODIUM CHL 1,000 ML IV ONE (14:00)
[2019-02-12 15:29] LABS: APPEARANCE,URINE CLOUDY (CLEAR); BILIRUBIN,URINE NEGATIVE (NEGATIVE); GLUCOSE, URINE (UA) NEGATIVE (NEGATIVE); KETONES,URINE NEGATIVE (NEGATIVE); LEUKOCYTE ESTERASE ,URINE MODERATE (NEGATIVE); NITRATE,URINE NEGATIVE (NEGATIVE); OCCULT BLOOD,URINE MODERATE (NEGATIVE); PROTEIN,URINE POS 1+ (NEGATIVE)
[2019-02-12 15:46] LABS: BACTERIA,URINE Moderate /HPF (None Seen); SQUAMOUS EPITHELIAL CELL,UR Few /LPF (None Seen)
[2019-02-12 16:02] VITALS: BP 166/70
== END 2019-02-12 16:55 | disposition short-term general hospital (02) ==
LOC: EMS 10:04
DX: E87.5 Hyperkalemia (principal); J90 Pleural effusion, not elsewhere classified; D64.9 Anemia, unspecified; N17.9 Acute kidney failure, unspecified; R10.84 Generalized abdominal pain; R42 Dizziness and giddiness; R53.1 Weakness; E11.9 Type 2 diabetes mellitus without complications; I10 Essential (primary) hypertension; G80.9 Cerebral palsy, unspecified; M19.90 Unspecified osteoarthritis, unspecified site; M81.0 Age-related osteoporosis without current pathological fracture; Z88.0 Allergy status to penicillin; Z91.041 Radiographic dye allergy status; Z91.018 Allergy to other foods; Z79.899 Other long term (current) drug therapy; Z90.49 Acquired absence of other specified parts of digestive tract; Z88.8 Allergy status to other drugs, medicaments and biological substances
CPT/HCPCS: 36415; 71045; 74176; 80053; 81001; 82550; 82962; 83690; 83880; 84484; 85025; 87086; 93005; 96361; 96374; 96375; 99285; J1885; J2405; J7040